=== PATIENT | female | born 1995 | race African-American/Black ===

== ENCOUNTER 2021-07-01 05:46 | Emergency (ER) | payer OTHER ==
[~2021-07-01] VITALS: Ht 157.5 cm; Wt 86.0 kg
[2021-07-01] MEDS ORDERED: MORPHINE SULFATE 4 MG/ML CPJ (NOT FOR IM USE) IV STA (05:53)
[2021-07-01 06:34] LABS: EOSINOPHILS % 2.6 % (0.0-5.0); HEMATOCRIT. 41.8 % (36.0-48.0); HEMOGLOBIN. 13.9 g/dL (12.0-16.0); LYMPHOCYTES % 40.4 % (20.0-50.0); MEAN CORPUSCULAR HEMOGLOBIN 32.2 pg (28.0-32.0); MEAN CORPUSCULAR VOLUME 96.7 fL (81.0-99.0); MEAN PLATELET VOLUME 10.5 fl (7.4-10.4); MONOCYTES % 6.4 % (2.0-8.0); NEUTROPHILS % 49.6 % (40.0-76.0); PLATELET 227 x1000/uL (130-400); RED BLOOD CELL COUNT 4.32 mill/uL (4.2-5.4); RED CELL DISTRIBUTION WIDTH 13.1 % (11.6-14.6)
[2021-07-01 06:36] LABS: CHLORIDE 108 mEq/L (98-107)
[2021-07-01 08:21] LABS: HCG SCREEN NEGATIVE
[2021-07-01] MEDS ORDERED: MORPHINE SULFATE 4 MG/ML CPJ (NOT FOR IM USE) IV ONE (09:00)
[2021-07-01] MEDS ORDERED: TOPUD PO (09:40)
[2021-07-01] MEDS ORDERED: MORPHINE SULFATE 4 MG/ML CPJ (NOT FOR IM USE) IV NR (10:15)
[2021-07-01 10:30] VITALS: BP 122/61
[2021-07-01] MEDS ORDERED: MORPHINE SULFATE 2 MG/ML CPJ (NOT FOR IM USE) IV NR (10:45)
== END 2021-07-01 10:50 | disposition home or self-care (01) ==
LOC: ER 05:46
DX: R10.9 Unspecified abdominal pain (principal)
CPT/HCPCS: 36415; 74176; 80053; 84703; 85025; 96374; 96376; 99285; J2270